=== PATIENT | male | born 1965 | race Caucasian/White ===

== ENCOUNTER 2017-12-17 17:24 | Inpatient (IN) | payer OTHER ==
[2017-12-17] MEDS ORDERED: MAGNESIUM HYDROXIDE 30ML CUP PO (18:30)
[2017-12-17] MEDS ORDERED: LACTULOSE 30ML CUP PO (18:30)
[2017-12-17] MEDS ORDERED: BISACODYL 10 MG SUPP PR (18:30)
[2017-12-17] MEDS ORDERED: ACETAMINOPHEN 325 MG TAB PO (18:30)
[2017-12-17 18:57] LABS: ADD MAN DIFF? NO
[2017-12-17 18:59] LABS: BASOPHIL # 0.1 10^3/ul (0.0-0.1); BASOPHILS % 0.5 % (0.0-2.0); EOSINOPHILS # 0.2 10^3/ul (0.0-0.5); EOSINOPHILS % 1.6 % (0.0-7.0); HEMATOCRIT 41.8 % (42.0-52.0); HEMOGLOBIN 14.7 g/dl (14.0-18.0); LYMPHOCYTES # 1.9 10^3/ul (0.8-2.9); LYMPHOCYTES % 19.7 % (15.0-51.0); MEAN CORPUSCULAR HEMOGLOBIN 30.2 pg (29.0-33.0); MEAN CORPUSCULAR HGB CONC 35.2 g/dl (32.0-37.0); MEAN CORPUSCULAR VOLUME 85.8 fl (82.0-101.0); MEAN PLATELET VOLUME 9.4 fl (7.4-10.4); MONOCYTE # 0.7 10^3/ul (0.3-0.9); MONOCYTES % 7.7 % (0.0-11.0); NEUTROPHIL # 6.6 10^3/ul (1.6-7.5); NEUTROPHILS % 70.3 % (39.0-77.0); PLATELET COUNT 199 10^3/UL (140-415); RED BLOOD COUNT 4.87 10^6/ul (4.70-6.10); RED CELL DISTRIBUTION WIDTH 11.3 % (11.5-14.5)
[2017-12-17 18:59] LABS: WHITE BLOOD COUNT 9.4 10^3/ul (4.8-10.8)
[2017-12-17] MEDS ORDERED: GLUCOSE GEL 15 GRAM TUBE BUCCAL (19:00)
[2017-12-17] MEDS ORDERED: DEXTROSE 50% 50 ML SYRINGE IV ×2 (19:00)
[2017-12-17] MEDS ORDERED: GLUCOSE GEL 15 GRAM TUBE PO ×2 (19:00)
[2017-12-17] MEDS ORDERED: GLUCAGON 1 MG INJ IM (19:00)
[2017-12-17 19:29] LABS: ALANINE AMINOTRANSFERASE 155 IU/L (13-69); ALBUMIN 3.8 g/dl (3.3-4.9); ALBUMIN/GLOBULIN RATIO 1.26; ALKALINE PHOSPHATASE 94 IU/L (42-121); ANION GAP 15 (8-16); ASPARTATE AMINO TRANSFERASE 95 IU/L (15-46); BILIRUBIN,INDIRECT 0.4 mg/dl (0-1.1); BILIRUBIN,TOTAL 0.4 mg/dl (0.2-1.3); BLOOD UREA NITROGEN 18 mg/dl (7-20); CARBON DIOXIDE 24 mmol/L (21-31); CHLORIDE 104 mmol/L (97-110); GLUCOSE 222 mg/dl (70-220); POTASSIUM 3.9 mmol/L (3.5-5.1); SODIUM 139 mmol/L (135-144); TOTAL PROTEIN 6.8 g/dl (6.1-8.1)
[2017-12-17] MEDS: ATORVASTATIN 80 MG TAB PO (20:41)
[2017-12-17] MEDS: DOCUSATE SODIUM 100 MG CAP PO (20:42)
[2017-12-17] MEDS: NIFEdipine (XL) 30 MG TAB PO (20:42)
[2017-12-17] MEDS: SENNA TAB PO (20:48)
[2017-12-17] MEDS: HEPARIN 5,000 UNIT/0.5 ML VIAL SC (20:59)
[2017-12-17] MEDS: INSULIN GLARGINE [LANtus] 3 ML PEN SC (21:00)
[2017-12-17] MEDS: Insulin NOVOLOG SS MILD Algorithm (SS with meals and bedtime) SC (21:06)
[2017-12-17 22:43] LABS: ADD UMIC NO; UR ASCORBIC ACID NEGATIVE (NEGATIVE); UR BILIRUBIN (Dip) NEGATIVE (NEGATIVE); UR BLOOD (Dip) NEGATIVE (NEGATIVE); UR CLARITY CLEAR (CLEAR); UR COLOR YELLOW (YELLOW); UR GLUCOSE (Dip) 1+ mg/dL (NEGATIVE); UR KETONES (Dip) NEGATIVE (NEGATIVE); UR LEUKOCYTE ESTERASE (Dip) NEGATIVE Leu/ul (NEGATIVE); UR NITRITE (Dip) NEGATIVE (NEGATIVE); UR SPECIFIC GRAVITY (Dip) 1.019 (1.003-1.030); UR TOTAL PROTEIN (Dip) NEGATIVE (NEGATIVE); UR UROBILINOGEN (Dip) NEGATIVE (NEGATIVE)
[2017-12-18] MEDS: ACCUCHECK 2 AM XX (02:11)
[2017-12-18] MEDS: Insulin NOVOLOG SS MILD Algorithm (SS with meals and bedtime) SC ×4 (07:05→20:48)
[2017-12-18 07:56] LABS: HEMOGLOBIN A1C 10.4 % (0-5.9)
[2017-12-18] MEDS: metFORMIN 500 MG TAB PO ×2 (08:44→17:53)
[2017-12-18] MEDS: POLYETHYLENE GLYCOL 17 GM PACKET PO (09:00)
[2017-12-18] MEDS: DOCUSATE SODIUM 100 MG CAP PO ×2 (09:57→20:42)
[2017-12-18] MEDS: LISINOPRIL 20 MG TAB PO (09:57)
[2017-12-18] MEDS: NIFEdipine (XL) 30 MG TAB PO ×2 (09:58→20:42)
[2017-12-18] MEDS: HEPARIN 5,000 UNIT/0.5 ML VIAL SC ×2 (10:13→20:50)
[2017-12-18] MEDS: PSYLLIUM 28% PACKET PO (10:15)
[2017-12-18] MEDS: FAMOTIDINE 20 MG TAB PO ×2 (10:15→20:41)
[2017-12-18] MEDS ORDERED: metFORMIN 500 MG TAB PO (17:35)
[2017-12-18] MEDS: ATORVASTATIN 80 MG TAB PO (20:42)
[2017-12-18] MEDS: INSULIN GLARGINE [LANtus] 3 ML PEN SC (20:49)
[2017-12-18] MEDS: SENNA TAB PO (20:58)
[2017-12-19] MEDS: ACCUCHECK 2 AM XX (02:48)
[2017-12-19] MEDS: Insulin NOVOLOG SS MILD Algorithm (SS with meals and bedtime) SC ×4 (08:12→21:00)
[2017-12-19] MEDS: POLYETHYLENE GLYCOL 17 GM PACKET PO (08:41)
[2017-12-19] MEDS: PSYLLIUM (SUGAR FREE) PACKET PO (08:42)
[2017-12-19] MEDS: FAMOTIDINE 20 MG TAB PO ×2 (08:42→21:04)
[2017-12-19] MEDS: LISINOPRIL 20 MG TAB PO (08:42)
[2017-12-19] MEDS: NIFEdipine (XL) 30 MG TAB PO ×2 (08:42→21:05)
[2017-12-19] MEDS: DOCUSATE SODIUM 100 MG CAP PO ×2 (08:42→21:04)
[2017-12-19] MEDS: HEPARIN 5,000 UNIT/0.5 ML VIAL SC ×2 (08:44→21:16)
[2017-12-19] MEDS: metFORMIN 500 MG TAB PO ×2 (08:44→17:56)
[2017-12-19] MEDS ORDERED: PSYLLIUM 28% PACKET PO (09:00)
[2017-12-19] MEDS: SENNA TAB PO (21:00)
[2017-12-19] MEDS: CARBAMIDE PEROXIDE 6.5% 15ML OTIC RIGHT EAR (21:04)
[2017-12-19] MEDS: ATORVASTATIN 80 MG TAB PO (21:04)
[2017-12-19] MEDS: INSULIN GLARGINE [LANtus] 3 ML PEN SC (21:15)
[2017-12-20] MEDS: ACCUCHECK 2 AM XX (02:00)
[2017-12-20] MEDS: Insulin NOVOLOG SS MILD Algorithm (SS with meals and bedtime) SC ×4 (07:05→21:00)
[2017-12-20] MEDS: metFORMIN 500 MG TAB PO ×2 (07:53→17:53)
[2017-12-20] MEDS: FAMOTIDINE 20 MG TAB PO ×2 (09:19→21:10)
[2017-12-20] MEDS: POLYETHYLENE GLYCOL 17 GM PACKET PO (09:19)
[2017-12-20] MEDS: LISINOPRIL 20 MG TAB PO (09:19)
[2017-12-20] MEDS: PSYLLIUM (SUGAR FREE) PACKET PO (09:19)
[2017-12-20] MEDS: HEPARIN 5,000 UNIT/0.5 ML VIAL SC ×2 (09:20→21:14)
[2017-12-20] MEDS: NIFEdipine (XL) 30 MG TAB PO ×2 (09:20→21:10)
[2017-12-20] MEDS: DOCUSATE SODIUM 100 MG CAP PO ×2 (09:20→21:10)
[2017-12-20] MEDS: ATORVASTATIN 80 MG TAB PO (21:10)
[2017-12-20] MEDS: SENNA TAB PO (21:10)
[2017-12-20] MEDS: CARBAMIDE PEROXIDE 6.5% 15ML OTIC RIGHT EAR (21:11)
[2017-12-20] MEDS: INSULIN GLARGINE [LANtus] 3 ML PEN SC (21:17)
[2017-12-21] MEDS: ACCUCHECK 2 AM XX (02:00)
[2017-12-21] MEDS: metFORMIN 500 MG TAB PO ×2 (08:17→17:30)
[2017-12-21] MEDS: Insulin NOVOLOG SS MILD Algorithm (SS with meals and bedtime) SC ×4 (08:23→20:57)
[2017-12-21] MEDS: PSYLLIUM (SUGAR FREE) PACKET PO (08:34)
[2017-12-21] MEDS: FAMOTIDINE 20 MG TAB PO ×2 (08:34→20:56)
[2017-12-21] MEDS: NIFEdipine (XL) 30 MG TAB PO ×2 (08:34→20:56)
[2017-12-21] MEDS: LISINOPRIL 20 MG TAB PO (08:34)
[2017-12-21] MEDS: POLYETHYLENE GLYCOL 17 GM PACKET PO (08:34)
[2017-12-21] MEDS: DOCUSATE SODIUM 100 MG CAP PO ×2 (08:35→20:56)
[2017-12-21] MEDS: HEPARIN 5,000 UNIT/0.5 ML VIAL SC ×2 (08:43→21:05)
[2017-12-21] MEDS: CARBAMIDE PEROXIDE 6.5% 15ML OTIC RIGHT EAR (20:56)
[2017-12-21] MEDS: ATORVASTATIN 80 MG TAB PO (20:57)
[2017-12-21] MEDS: SENNA TAB PO (21:00)
[2017-12-21] MEDS: INSULIN GLARGINE [LANtus] 3 ML PEN SC (21:06)
[2017-12-22] MEDS: ACCUCHECK 2 AM XX (02:00)
[2017-12-22] MEDS: Insulin NOVOLOG SS MILD Algorithm (SS with meals and bedtime) SC ×4 (07:05→21:00)
[2017-12-22] MEDS: metFORMIN 500 MG TAB PO ×2 (07:48→17:44)
[2017-12-22] MEDS: HEPARIN 5,000 UNIT/0.5 ML VIAL SC ×2 (08:46→21:18)
[2017-12-22] MEDS: POLYETHYLENE GLYCOL 17 GM PACKET PO (08:47)
[2017-12-22] MEDS: PSYLLIUM (SUGAR FREE) PACKET PO (08:47)
[2017-12-22] MEDS: DOCUSATE SODIUM 100 MG CAP PO ×2 (08:48→21:03)
[2017-12-22] MEDS: NIFEdipine (XL) 30 MG TAB PO ×2 (08:48→21:03)
[2017-12-22] MEDS: FAMOTIDINE 20 MG TAB PO ×2 (08:48→21:03)
[2017-12-22] MEDS: LISINOPRIL 20 MG TAB PO (08:48)
[2017-12-22] MEDS: SENNA TAB PO (21:03)
[2017-12-22] MEDS: ATORVASTATIN 80 MG TAB PO (21:03)
[2017-12-22] MEDS: INSULIN GLARGINE [LANtus] 3 ML PEN SC (21:18)
[2017-12-23] MEDS: ACCUCHECK 2 AM XX (02:00)
[2017-12-23] MEDS: Insulin NOVOLOG SS MILD Algorithm (SS with meals and bedtime) SC ×4 (07:05→21:00)
[2017-12-23] MEDS: HEPARIN 5,000 UNIT/0.5 ML VIAL SC ×2 (08:47→21:05)
[2017-12-23] MEDS: NIFEdipine (XL) 30 MG TAB PO ×2 (08:48→21:07)
[2017-12-23] MEDS: metFORMIN 500 MG TAB PO ×2 (08:48→18:13)
[2017-12-23] MEDS: FAMOTIDINE 20 MG TAB PO ×2 (08:49→21:07)
[2017-12-23] MEDS: LISINOPRIL 20 MG TAB PO (08:49)
[2017-12-23] MEDS: POLYETHYLENE GLYCOL 17 GM PACKET PO (08:51)
[2017-12-23] MEDS: PSYLLIUM (SUGAR FREE) PACKET PO (08:51)
[2017-12-23] MEDS: DOCUSATE SODIUM 100 MG CAP PO ×2 (09:04→21:07)
[2017-12-23] MEDS: INSULIN GLARGINE [LANtus] 3 ML PEN SC (21:04)
[2017-12-23] MEDS: ATORVASTATIN 80 MG TAB PO (21:07)
[2017-12-23] MEDS: SENNA TAB PO (21:07)
[2017-12-24] MEDS: ACCUCHECK 2 AM XX (02:00)
[2017-12-24] MEDS: Insulin NOVOLOG SS MILD Algorithm (SS with meals and bedtime) SC ×4 (07:05→21:00)
[2017-12-24] MEDS: FAMOTIDINE 20 MG TAB PO ×2 (08:24→20:51)
[2017-12-24] MEDS: metFORMIN 500 MG TAB PO ×2 (08:25→17:54)
[2017-12-24] MEDS: DOCUSATE SODIUM 100 MG CAP PO ×2 (08:25→20:50)
[2017-12-24] MEDS: PSYLLIUM (SUGAR FREE) PACKET PO (08:26)
[2017-12-24] MEDS: POLYETHYLENE GLYCOL 17 GM PACKET PO (08:26)
[2017-12-24] MEDS: HEPARIN 5,000 UNIT/0.5 ML VIAL SC ×2 (08:32→21:02)
[2017-12-24] MEDS: LISINOPRIL 20 MG TAB PO (09:08)
[2017-12-24] MEDS: NIFEdipine (XL) 30 MG TAB PO ×2 (09:08→20:51)
[2017-12-24] MEDS: ATORVASTATIN 80 MG TAB PO (20:51)
[2017-12-24] MEDS: SENNA TAB PO (21:00)
[2017-12-24] MEDS: INSULIN GLARGINE [LANtus] 3 ML PEN SC (21:02)
[2017-12-25] MEDS: ACCUCHECK 2 AM XX (00:12)
[2017-12-25] MEDS: Insulin NOVOLOG SS MILD Algorithm (SS with meals and bedtime) SC ×4 (07:05→21:00)
[2017-12-25] MEDS: metFORMIN 500 MG TAB PO ×2 (08:08→17:57)
[2017-12-25] MEDS: FAMOTIDINE 20 MG TAB PO ×2 (08:08→20:23)
[2017-12-25] MEDS: DOCUSATE SODIUM 100 MG CAP PO ×2 (08:08→20:23)
[2017-12-25] MEDS: POLYETHYLENE GLYCOL 17 GM PACKET PO (08:09)
[2017-12-25] MEDS: PSYLLIUM (SUGAR FREE) PACKET PO (08:09)
[2017-12-25] MEDS: NIFEdipine (XL) 30 MG TAB PO ×2 (08:09→20:23)
[2017-12-25] MEDS: LISINOPRIL 20 MG TAB PO (08:09)
[2017-12-25] MEDS: HEPARIN 5,000 UNIT/0.5 ML VIAL SC ×2 (08:23→21:23)
[2017-12-25] MEDS: ATORVASTATIN 80 MG TAB PO (20:23)
[2017-12-25] MEDS: INSULIN GLARGINE [LANtus] 3 ML PEN SC (20:37)
[2017-12-25] MEDS: SENNA TAB PO (21:00)
[2017-12-26] MEDS: ACCUCHECK 2 AM XX (01:50)
[2017-12-26] MEDS: Insulin NOVOLOG SS MILD Algorithm (SS with meals and bedtime) SC ×4 (07:05→22:00)
[2017-12-26] MEDS: FAMOTIDINE 20 MG TAB PO ×2 (08:17→22:05)
[2017-12-26] MEDS: metFORMIN 500 MG TAB PO ×2 (08:17→17:24)
[2017-12-26] MEDS: DOCUSATE SODIUM 100 MG CAP PO ×2 (08:17→22:00)
[2017-12-26] MEDS: PSYLLIUM (SUGAR FREE) PACKET PO (08:18)
[2017-12-26] MEDS: LISINOPRIL 20 MG TAB PO (08:18)
[2017-12-26] MEDS: POLYETHYLENE GLYCOL 17 GM PACKET PO (08:18)
[2017-12-26] MEDS: NIFEdipine (XL) 30 MG TAB PO ×2 (08:18→22:07)
[2017-12-26] MEDS: HEPARIN 5,000 UNIT/0.5 ML VIAL SC ×2 (08:18→22:02)
[2017-12-26] MEDS: SENNA TAB PO (22:00)
[2017-12-26] MEDS: INSULIN GLARGINE [LANtus] 3 ML PEN SC (22:03)
[2017-12-26] MEDS: ATORVASTATIN 80 MG TAB PO (22:05)
[2017-12-27] MEDS: ACCUCHECK 2 AM XX (02:00)
[2017-12-27] MEDS: Insulin NOVOLOG SS MILD Algorithm (SS with meals and bedtime) SC ×4 (07:05→21:00)
[2017-12-27] MEDS: POLYETHYLENE GLYCOL 17 GM PACKET PO (08:16)
[2017-12-27] MEDS: PSYLLIUM (SUGAR FREE) PACKET PO (08:16)
[2017-12-27] MEDS: NIFEdipine (XL) 30 MG TAB PO ×2 (08:17→20:37)
[2017-12-27] MEDS: LISINOPRIL 20 MG TAB PO (08:17)
[2017-12-27] MEDS: metFORMIN 500 MG TAB PO ×2 (08:17→17:25)
[2017-12-27] MEDS: FAMOTIDINE 20 MG TAB PO ×2 (08:17→20:37)
[2017-12-27] MEDS: DOCUSATE SODIUM 100 MG CAP PO ×2 (08:17→20:37)
[2017-12-27] MEDS: HEPARIN 5,000 UNIT/0.5 ML VIAL SC ×2 (08:18→20:44)
[2017-12-27] MEDS: ATORVASTATIN 80 MG TAB PO (20:37)
[2017-12-27] MEDS: INSULIN GLARGINE [LANtus] 3 ML PEN SC (20:43)
[2017-12-27] MEDS: SENNA TAB PO (20:44)
[2017-12-28] MEDS: ACCUCHECK 2 AM XX (02:00)
[2017-12-28] MEDS: Insulin NOVOLOG SS MILD Algorithm (SS with meals and bedtime) SC ×4 (07:05→20:49)
[2017-12-28] MEDS: HEPARIN 5,000 UNIT/0.5 ML VIAL SC ×2 (08:21→20:48)
[2017-12-28] MEDS: FAMOTIDINE 20 MG TAB PO ×2 (08:22→20:41)
[2017-12-28] MEDS: PSYLLIUM (SUGAR FREE) PACKET PO (08:22)
[2017-12-28] MEDS: metFORMIN 500 MG TAB PO ×2 (08:22→17:55)
[2017-12-28] MEDS: DOCUSATE SODIUM 100 MG CAP PO ×2 (08:22→20:41)
[2017-12-28] MEDS: POLYETHYLENE GLYCOL 17 GM PACKET PO (08:22)
[2017-12-28] MEDS: LISINOPRIL 20 MG TAB PO (08:25)
[2017-12-28] MEDS: NIFEdipine (XL) 30 MG TAB PO ×2 (08:25→20:41)
[2017-12-28] MEDS: SENNA TAB PO (20:41)
[2017-12-28] MEDS: ATORVASTATIN 80 MG TAB PO (20:41)
[2017-12-28] MEDS: INSULIN GLARGINE [LANtus] 3 ML PEN SC (20:48)
[2017-12-29] MEDS: ACCUCHECK 2 AM XX (02:00)
[2017-12-29 06:28] LABS: ADD MAN DIFF? NO
[2017-12-29 06:39] LABS: WHITE BLOOD COUNT 7.6 10^3/ul (4.8-10.8)
[2017-12-29 06:39] LABS: BASOPHIL # 0.1 10^3/ul (0.0-0.1); BASOPHILS % 1.2 % (0.0-2.0); EOSINOPHILS # 0.2 10^3/ul (0.0-0.5); EOSINOPHILS % 2.7 % (0.0-7.0); HEMATOCRIT 41.7 % (42.0-52.0); HEMOGLOBIN 14.6 g/dl (14.0-18.0); LYMPHOCYTES # 2.1 10^3/ul (0.8-2.9); MEAN CORPUSCULAR HEMOGLOBIN 30.1 pg (29.0-33.0); MEAN PLATELET VOLUME 9.2 fl (7.4-10.4); MONOCYTE # 0.7 10^3/ul (0.3-0.9); MONOCYTES % 9.6 % (0.0-11.0); NEUTROPHIL # 4.5 10^3/ul (1.6-7.5); NEUTROPHILS % 59.1 % (39.0-77.0); PLATELET COUNT 246 10^3/UL (140-415); RED BLOOD COUNT 4.85 10^6/ul (4.70-6.10); RED CELL DISTRIBUTION WIDTH 11.6 % (11.5-14.5)
[2017-12-29 06:59] LABS: ANION GAP 16 (8-16); BLOOD UREA NITROGEN 16 mg/dl (7-20); CALCIUM 9.4 mg/dl (8.4-10.2); CARBON DIOXIDE 29 mmol/L (21-31); CHLORIDE 102 mmol/L (97-110); CREATININE 0.78 mg/dl (0.61-1.24); GLUCOSE 87 mg/dl (70-220); PHOSPHORUS 4.6 mg/dl (2.5-4.9); POTASSIUM 4.3 mmol/L (3.5-5.1); SODIUM 143 mmol/L (135-144)
[2017-12-29 07:03] LABS: CHOLESTEROL 67 mg/dl (100-200)
[2017-12-29 07:03] LABS: CHOL/HDL RATIO 1.9 RATIO; HDL CHOLESTEROL 34 mg/dl (28-71); LDL CHOLESTEROL,CALCULATED 17 mg/dl; TRIGLYCERIDES 79 mg/dl (0-149)
[2017-12-29] MEDS: Insulin NOVOLOG SS MILD Algorithm (SS with meals and bedtime) SC ×4 (07:05→21:00)
[2017-12-29] MEDS: metFORMIN 500 MG TAB PO ×2 (07:47→17:12)
[2017-12-29] MEDS: PSYLLIUM (SUGAR FREE) PACKET PO (08:53)
[2017-12-29] MEDS: NIFEdipine (XL) 30 MG TAB PO ×2 (08:53→21:16)
[2017-12-29] MEDS: LISINOPRIL 20 MG TAB PO (08:53)
[2017-12-29] MEDS: FAMOTIDINE 20 MG TAB PO ×2 (08:53→21:15)
[2017-12-29] MEDS: HEPARIN 5,000 UNIT/0.5 ML VIAL SC ×2 (08:53→21:29)
[2017-12-29] MEDS: DOCUSATE SODIUM 100 MG CAP PO ×2 (08:53→21:00)
[2017-12-29] MEDS: POLYETHYLENE GLYCOL 17 GM PACKET PO (08:53)
[2017-12-29] MEDS: SENNA TAB PO (21:00)
[2017-12-29] MEDS: ATORVASTATIN 80 MG TAB PO (21:15)
[2017-12-29] MEDS: INSULIN GLARGINE [LANtus] 3 ML PEN SC (21:29)
[2017-12-30] MEDS: ACCUCHECK 2 AM XX (02:00)
[2017-12-30] MEDS: Insulin NOVOLOG SS MILD Algorithm (SS with meals and bedtime) SC ×4 (07:05→21:00)
[2017-12-30] MEDS: metFORMIN 500 MG TAB PO ×2 (07:34→17:53)
[2017-12-30] MEDS: DOCUSATE SODIUM 100 MG CAP PO ×2 (08:29→21:00)
[2017-12-30] MEDS: LISINOPRIL 20 MG TAB PO (08:29)
[2017-12-30] MEDS: FAMOTIDINE 20 MG TAB PO ×2 (08:29→21:08)
[2017-12-30] MEDS: NIFEdipine (XL) 30 MG TAB PO ×2 (08:29→21:08)
[2017-12-30] MEDS: POLYETHYLENE GLYCOL 17 GM PACKET PO (08:30)
[2017-12-30] MEDS: PSYLLIUM (SUGAR FREE) PACKET PO (08:30)
[2017-12-30] MEDS: HEPARIN 5,000 UNIT/0.5 ML VIAL SC ×2 (08:30→21:18)
[2017-12-30] MEDS: SENNA TAB PO (21:00)
[2017-12-30] MEDS: ATORVASTATIN 80 MG TAB PO (21:08)
[2017-12-30] MEDS: INSULIN GLARGINE [LANtus] 3 ML PEN SC (21:18)
[2017-12-31] MEDS: ACCUCHECK 2 AM XX (02:00)
[2017-12-31] MEDS: Insulin NOVOLOG SS MILD Algorithm (SS with meals and bedtime) SC ×4 (07:05→21:00)
[2017-12-31] MEDS: metFORMIN 500 MG TAB PO ×2 (07:32→17:19)
[2017-12-31] MEDS: POLYETHYLENE GLYCOL 17 GM PACKET PO (08:13)
[2017-12-31] MEDS: FAMOTIDINE 20 MG TAB PO ×2 (08:14→21:07)
[2017-12-31] MEDS: LISINOPRIL 20 MG TAB PO (08:14)
[2017-12-31] MEDS: PSYLLIUM (SUGAR FREE) PACKET PO (08:14)
[2017-12-31] MEDS: DOCUSATE SODIUM 100 MG CAP PO ×2 (08:15→21:00)
[2017-12-31] MEDS: HEPARIN 5,000 UNIT/0.5 ML VIAL SC ×2 (08:15→21:10)
[2017-12-31] MEDS: NIFEdipine (XL) 30 MG TAB PO ×2 (08:15→21:07)
[2017-12-31] MEDS: VALSARTAN 160 MG TAB PO (11:36)
[2017-12-31] MEDS: SENNA TAB PO (21:00)
[2017-12-31] MEDS: ATORVASTATIN 80 MG TAB PO (21:06)
[2017-12-31] MEDS: INSULIN GLARGINE [LANtus] 3 ML PEN SC (21:11)
[2018-01-01] MEDS: ACCUCHECK 2 AM XX (02:00)
[2018-01-01] MEDS: Insulin NOVOLOG SS MILD Algorithm (SS with meals and bedtime) SC ×4 (07:05→20:47)
[2018-01-01] MEDS: POLYETHYLENE GLYCOL 17 GM PACKET PO (08:30)
[2018-01-01] MEDS: PSYLLIUM (SUGAR FREE) PACKET PO (08:30)
[2018-01-01] MEDS: DOCUSATE SODIUM 100 MG CAP PO ×2 (08:31→20:47)
[2018-01-01] MEDS: metFORMIN 500 MG TAB PO ×2 (08:31→17:39)
[2018-01-01] MEDS: FAMOTIDINE 20 MG TAB PO ×2 (08:31→20:31)
[2018-01-01] MEDS: VALSARTAN 160 MG TAB PO (08:31)
[2018-01-01] MEDS: NIFEdipine (XL) 30 MG TAB PO ×2 (08:31→20:32)
[2018-01-01] MEDS: HEPARIN 5,000 UNIT/0.5 ML VIAL SC ×2 (08:37→20:36)
[2018-01-01] MEDS: ATORVASTATIN 80 MG TAB PO (20:31)
[2018-01-01] MEDS: INSULIN GLARGINE [LANtus] 3 ML PEN SC (20:37)
[2018-01-01] MEDS: SENNA TAB PO (20:47)
[2018-01-02] MEDS: ACCUCHECK 2 AM XX (02:00)
[2018-01-02] MEDS: Insulin NOVOLOG SS MILD Algorithm (SS with meals and bedtime) SC ×4 (07:05→21:00)
[2018-01-02] MEDS: metFORMIN 500 MG TAB PO ×2 (08:51→17:57)
[2018-01-02] MEDS: PSYLLIUM (SUGAR FREE) PACKET PO (08:52)
[2018-01-02] MEDS: DOCUSATE SODIUM 100 MG CAP PO ×2 (08:52→21:00)
[2018-01-02] MEDS: POLYETHYLENE GLYCOL 17 GM PACKET PO (08:52)
[2018-01-02] MEDS: VALSARTAN 160 MG TAB PO (08:53)
[2018-01-02] MEDS: NIFEdipine (XL) 30 MG TAB PO ×2 (08:53→21:23)
[2018-01-02] MEDS: FAMOTIDINE 20 MG TAB PO ×2 (08:53→21:23)
[2018-01-02] MEDS: HEPARIN 5,000 UNIT/0.5 ML VIAL SC ×2 (08:56→21:26)
[2018-01-02] MEDS: ASPIRIN 81 MG TAB PO (11:55)
[2018-01-02] MEDS: SENNA TAB PO (21:00)
[2018-01-02] MEDS: ATORVASTATIN 80 MG TAB PO (21:23)
[2018-01-02] MEDS: INSULIN GLARGINE [LANtus] 3 ML PEN SC (21:26)
[2018-01-03] MEDS: ACCUCHECK 2 AM XX (02:00)
[2018-01-03] MEDS: Insulin NOVOLOG SS MILD Algorithm (SS with meals and bedtime) SC ×4 (07:05→22:30)
[2018-01-03] MEDS: metFORMIN 500 MG TAB PO ×2 (07:44→17:46)
[2018-01-03] MEDS: NIFEdipine (XL) 30 MG TAB PO ×2 (10:48→22:46)
[2018-01-03] MEDS: FAMOTIDINE 20 MG TAB PO ×2 (10:49→22:46)
[2018-01-03] MEDS: ASPIRIN 325 MG TAB PO (10:49)
[2018-01-03] MEDS: DOCUSATE SODIUM 100 MG CAP PO ×2 (10:49→22:30)
[2018-01-03] MEDS: PSYLLIUM (SUGAR FREE) PACKET PO (10:50)
[2018-01-03] MEDS: VALSARTAN 160 MG TAB PO (10:50)
[2018-01-03] MEDS: POLYETHYLENE GLYCOL 17 GM PACKET PO (10:50)
[2018-01-03] MEDS: HEPARIN 5,000 UNIT/0.5 ML VIAL SC ×2 (10:52→22:49)
[2018-01-03] MEDS: SENNA TAB PO (22:30)
[2018-01-03] MEDS: ATORVASTATIN 40 MG TAB PO (22:46)
[2018-01-03] MEDS: INSULIN GLARGINE [LANtus] 3 ML PEN SC (22:48)
[2018-01-04] MEDS: ACCUCHECK 2 AM XX (02:00)
[2018-01-04] MEDS: Insulin NOVOLOG SS MILD Algorithm (SS with meals and bedtime) SC ×2 (07:05→11:30)
[2018-01-04] MEDS: DOCUSATE SODIUM 100 MG CAP PO (11:40)
[2018-01-04] MEDS: ASPIRIN 325 MG TAB PO (11:40)
[2018-01-04] MEDS: FAMOTIDINE 20 MG TAB PO (11:40)
[2018-01-04] MEDS: metFORMIN 500 MG TAB PO (11:40)
[2018-01-04] MEDS: HEPARIN 5,000 UNIT/0.5 ML VIAL SC (11:42)
[2018-01-04] MEDS: POLYETHYLENE GLYCOL 17 GM PACKET PO ×2 (11:42→11:49)
[2018-01-04] MEDS: PSYLLIUM (SUGAR FREE) PACKET PO (11:42)
[2018-01-04] MEDS: VALSARTAN 160 MG TAB PO (11:49)
[2018-01-04] MEDS: NIFEdipine (XL) 30 MG TAB PO (11:51)
== END 2018-01-04 17:11 | disposition home health service (06) | DRG 57 ==
LOC: VRC 17:24
DX: I69.951 Hemiplegia and hemiparesis following unspecified cerebrovascular disease affecting right dominant side (principal); I10 Essential (primary) hypertension; E11.9 Type 2 diabetes mellitus without complications; E78.5 Hyperlipidemia, unspecified; G47.30 Sleep apnea, unspecified; Z72.0 Tobacco use; Z74.09 Other reduced mobility
CPT/HCPCS: 80048; 80053; 80061; 81003; 82962; 83036; 83735; 84100; 85025; 87081; 87086; 92507; 94660; 97110; 97112; 97116; 97150; 97163; 97167; 97530; 97535; 97542